=== PATIENT | female | born 1990 | race Caucasian/White ===

== ENCOUNTER 2018-04-27 11:57 | Emergency (ER) | payer OTHER ==
[~2018-04-27] VITALS: Ht 172.7 cm; Wt 73.9 kg
[2018-04-27] MEDS ORDERED: ONDANSETRON HCL/PF 4 MG/2 ML VIAL IVP ONE (12:30)
[2018-04-27] MEDS ORDERED: IV NS 0.9% 1,000 ML BAG IV ONE (12:30)
[2018-04-27] MEDS ORDERED: methylPREDNISolone SOD SUCC 125 MG/2ML VIAL IV ONE (12:30)
[2018-04-27] MEDS ORDERED: FAMOTIDINE/PF INJ 40 MG in IV D5W 250 ML IV ONE (12:30)
[2018-04-27] MEDS ORDERED: ONDANSETRON HCL/PF 4 MG/2 ML VIAL ONE (12:33)
[2018-04-27] MEDS ORDERED: methylPREDNISolone SOD SUCC 125 MG/2ML VIAL ONE ×2 (12:33→12:39)
--- NOTE | 2018-04-27 15:55 | NUR ---
Patient discharged to home in stable condition. Written and verbal after care instructions given. Patient verbalizes understanding of instruction.
[2018-04-27 17:19] VITALS: BP 145/87
== END 2018-04-27 15:55 | disposition home or self-care (01) ==
LOC: ER 12:00
DX: T78.3XXA Angioneurotic edema, initial encounter (principal); T78.01XA Anaphylactic reaction due to peanuts, initial encounter; Z91.010 Allergy to peanuts
CPT/HCPCS: 96365; 96375; 99283; A4606; J2405; J2930; J3490; J7030; J7060